=== PATIENT | male | born 1990 | race African-American/Black ===

== ENCOUNTER 2016-07-03 10:14 | Observation (INO) ==
[2016-07-03] MEDS ORDERED: KEFZOL 1 GM/D5W 1 GM/50 ML IVPB IV ONE (10:29)
[2016-07-03] MEDS ORDERED: DILAUDID IV ONE ×2 (10:29→12:15)
[2016-07-03] MEDS ORDERED: NS 1,000 ML IV ONE ×2 (10:30→12:20)
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
[2016-07-03 10:55] LABS: HEMOGLOBIN 15.8 g/dL (14.0-18.0); MCHC 33.6 g/dL (33-37); MCV 77.4 FL (81-99); MPV 9.8 FL (7.4-10.4); RBC 6.07 XMIL (4.7-6.1)
--- NOTE | 2016-07-03 11:37 | Diag Imaging Result Document ---
PROCEDURE NAME: FOREARM-RIGHT - 07/03/2016 RIGHT FOREARM TWO VIEWS: FINDINGS: There is a transverse fracture through the midshaft of the radius. The proximal and distal shafts overlap by 2.5 cm. There are 2 oblique fractures through the midshaft and distal shaft of the ulna. There is displacement by over a centimeter and there is overlapping of the large middle fragment and the distal fragment by almost 2 cm. IMPRESSION: Fractures to the radius and ulna.
[2016-07-03 11:53] LABS: AGAP 23; ALBUMIN 4.9 g/dL (3.5-5.0); ALKALINE PHOSPHATASE 80 U/L (32-122); BUN 9 mg/dL (8-22); CALCIUM 10.1 mg/dL (8.8-10.2); CHLORIDE 97 mmol/L (98-107); COSMO 278; GOT 19 U/L (10-34); GPT 14 U/L (10-44); SODIUM 139 mmol/L (136-145); TCO2 19 mmol/L (25-35); TOTAL PROTEIN 8.3 g/dL (6.3-8.3)
[2016-07-03] MEDS ORDERED: DIPHTHERIA/TETANUS ADULT IM ONE (12:09)
[2016-07-03] MEDS ORDERED: SENSORCAINE 0.5%-EPI 1:200,000 ONE (13:17)
[2016-07-03] MEDS ORDERED: NEOSPORIN G.U. IRRIGANT ONE ×2 (13:17→14:35)
[2016-07-03] MEDS ORDERED: KEFZOL 2 GM/D5W 2 GM/50 ML IVPB ONE (13:39)
[2016-07-03] MEDS ORDERED: DIPRIVAN 1% ONE (14:14)
[2016-07-03] MEDS ORDERED: FENTANYL ONE ×2 (14:14→16:18)
[2016-07-03] MEDS ORDERED: VERSED ONE (14:14)
[2016-07-03] MEDS ORDERED: PHENERGAN ONE (16:21)
[2016-07-03] MEDS ORDERED: NS 1,000 ML ONE (16:26)
[2016-07-03] MEDS: LABETALOL ONE ×2 (17:14→17:42)
[2016-07-03] MEDS ORDERED: APRESOLINE ONE (17:56)
[2016-07-03] MEDS ORDERED: MORPHINE IV PRN (18:55)
[2016-07-03] MEDS ORDERED: NS 1,000 ML IV SCH (19:00)
[2016-07-03] MEDS: NORCO-10 PO PRN ×2 (19:16→23:09)
[2016-07-03] MEDS ORDERED: PERIDEX MT SCH (21:00)
[2016-07-03] MEDS: KEFZOL 1 GM/D5W 1 GM/50 ML IVPB IV SCH (22:12)
[2016-07-04] MEDS: NORCO-10 PO PRN ×2 (04:46→08:47)
[2016-07-04] MEDS: KEFZOL 1 GM/D5W 1 GM/50 ML IVPB IV SCH (05:32)
--- NOTE | 2016-07-04 05:51 | OPERATIVE NOTE ---
PROCEDURE DATE: 07/03/2016 PREOPERATIVE DIAGNOSIS: Right type 2 open segmental ulnar fracture with closed radial shaft fracture. PROCEDURE PERFORMED: Irrigation and debridement of right open ulnar fracture, open reduction and internal fixation of right segmental ulnar fracture with a Synthes locking plate, and open reduction and internal fixation of right radial shaft fracture with a Synthes locking plate. ANESTHESIA: General. SURGEON: Titus Armas MD. ADJUNCT SOCIOLOGY PROFESSOR: Julisa. COMPLICATIONS: None. BLOOD LOSS: Minimal. TOURNIQUET TIME: Two hours. DESCRIPTION OF PROCEDURE: The patient was brought to the operative suite and placed in the supine position after successful administration of general anesthesia. A well-padded tourniquet was placed on the right proximal arm. The right upper extremity was prepped and draped in the usual sterile fashion. The arm was exsanguinated. Tourniquet insufflated to 250 torr. Using the volar Mark approach to the radius, this was dissected sharply through the skin down to the brachioradialis muscle. The brachioradialis muscle was elevated laterally, protecting the superficial radial nerve laterally and the radial artery medially. Then dissected down to the fracture site. The fracture was cleaned and reduced. Then a volar 6 hole locking plate was placed with 3 bicortical screws proximally with 2 of them locking and 3 bicortical screws distally with 2 of them locking. We compressed the fracture site prior to placing in the locking screws. Attention was then directed to the ulnar fracture. The open area was debrided. Then the wound and bone end was cleaned and copiously irrigated. A longitudinal incision was made overlying the ulna. This was dissected sharply through the skin and fascia down to the fracture. The fracture sites were cleaned and the segmental fracture was reduced. A 12 hole Synthes locking plate was placed with 3 bicortical screws distally, 3 bicortical screws proximally, and 3 bicortical screws in the segmental piece. Two of each of the sets of three screws were locking screws. Each of fracture sites were compressed prior to placing the locking screws. Fluoroscopy showed excellent reduction of the fractures on the AP and lateral images. The wounds were copiously irrigated. The fascia was closed with 2-0 Vicryl. Skin edge approximated with 3-0 Vicryl. Skin was closed with skin shelli except for the open fracture which was closed with interrupted 4-0 nylon suture. The wounds were all injected with Marcaine. Then a sterile dressing and a well-padded sugar-tong splint were applied. The patient tolerated the procedure well without complication. At the end of the procedure, all counts were correct x2. The patient was transferred to the recovery room in stable condition. cc: Titus Armas MD
[2016-07-04] MEDS ORDERED: MOTRIN PO PRN (08:15)
[2016-07-04 08:24] VITALS: BP 134/87
[2016-07-04] MEDS ORDERED: XYLOCAINE-MPF 2% ONE (09:49)
[2016-07-04] MEDS ORDERED: TORADOL ONE (09:49)
[2016-07-04] MEDS ORDERED: LR 2,000 ML ONE (09:49)
[2016-07-04] MEDS ORDERED: ZOFRAN ONE (09:49)
[2016-07-04] MEDS ORDERED: DECADRON ONE (09:49)
[2016-07-04] MEDS ORDERED: OFIRMEV 1000 MG/ISOTONIC SOLN 1,000 MG/100 ML BOTTLE ONE (09:49)
--- NOTE | 2016-07-05 08:10 | DISCHARGE SUMMARY ---
ADMISSION DATE: 07/03/2016 DISCHARGE DATE: 07/04/2016 DISCHARGE DIAGNOSIS: Right arm open segmental ulnar fracture and mid shaft radius fracture status- post irrigation and debridement and open reduction and fixation of both fractures. DISCHARGE MEDICATIONS: Ibuprofen 800 mg. DISPOSITION: The patient is discharged to law enforcement from whence he came. He is instructed to return to see Dr. Armas in 1 week. HOSPITAL COURSE: On the day of admission the patient underwent irrigation and debridement of his open fracture and then open reduction and internal fixation of all three fractures. His postoperative course was unremarkable. At discharge he is afebrile, tolerating a regular diet, and his pain is controlled with p.o. pain medicine. He is discharged to law enforcement with instructions to follow up as described above. cc: Titus Armas MD
== END 2016-07-04 09:42 ==
LOC: ED 10:14 → 4N 10:14
PROVIDERS: ADMIT Orthopaedic Surgery; ATTEND Orthopaedic Surgery